=== PATIENT | female | born 1965 | race Caucasian/White ===

== ENCOUNTER → 2016-09-28 | Outpatient (REF) | payer MEDICARE, MEDICAID ==
[~2016-09-28] MED LIST: CENTTAB47 PO; ETOD30CA PO; IRON65TA PO; NATU400T PO; PANT40TA2 PO; RANI15TA PO; SIMV20TA2 PO; STOO100C PO; TIZA4CAP3 PO; VITA500C24 PO
== END ==
LOC: M SFHCLERA 17:45
PROVIDERS: ATTEND Physician Assistant Medical
DX: J02.9 Acute pharyngitis, unspecified (principal)

== ENCOUNTER → 2017-02-03 | Outpatient (REF) | payer MEDICARE, MEDICAID ==
[2017-02-03 11:34] LABS: BASO % 0.8 % (0.0-1.0); EOS # 0.2 K/mm3 (0.0-0.50); EOS % 5.2 % (0.0-3.0); LARGE UNSTAINED CELL # 0.1 K/mm3 (0.0-0.4); LARGE UNSTAINED CELL % 1.4 % (0.0-4.0); LYMPH # 1.1 K/mm3 (1.5-4.5); LYMPH % 25.9 % (24.0-44.0); MEAN CORPUSCULAR HEMOGLOBIN 31.9 pg (27.0-33.0); MEAN CORPUSCULAR HGB CONC 35.9 g/dl (32.0-36.5); MEAN CORPUSCULAR VOLUME 88.8 fl (80.0-96.0); MONO # 0.2 K/mm3 (0.0-0.8); MONO % 5.6 % (0.0-5.0); NEUTROPHILS # 2.4 K/mm3 (1.8-7.7); PLATELET COUNT, AUTOMATED 206 k/mm3 (150-450); RED CELL DISTRIBUTION WIDTH 12.7 % (11.5-14.5); WHITE BLOOD COUNT 3.9 K/mm3 (4.0-10.0)
[2017-02-03 12:13] LABS: ALBUMIN 3.3 GM/DL (3.2-5.2); ALKALINE PHOSPHATASE 61 U/L (45-117); ALT/SGPT 27 U/L (12-78); ANION GAP 7 MEQ/L (8-16); AST/SGOT 20 U/L (15-37); BILIRUBIN,TOTAL 0.4 MG/DL (0.2-1.0); BLOOD UREA NITROGEN 19 MG/DL (7-18); CALCIUM LEVEL 8.7 MG/DL (8.5-10.1); CARBON DIOXIDE LEVEL 31 MEQ/L (21-32); CHLORIDE LEVEL 107 MEQ/L (98-107); CHOLESTEROL LEVEL 190 MG/DL (<200); CREATININE FOR GFR 0.83 MG/DL (0.55-1.02); GLOMERULAR FILTRATION RATE > 60.0 (>58); GLUCOSE, FASTING 90 MG/DL (70-105); POTASSIUM SERUM 4.7 MEQ/L (3.5-5.1); SODIUM LEVEL 145 MEQ/L (136-145); TOTAL PROTEIN 6.6 GM/DL (6.4-8.2); TRIGLYCERIDES LEVEL 122 MG/DL (<150)
== END ==
LOC: M SFHCLERA 08:00
PROVIDERS: ATTEND Family Medicine
DX: D50.9 Iron deficiency anemia, unspecified (principal); E78.2 Mixed hyperlipidemia; E03.9 Hypothyroidism, unspecified

== ENCOUNTER → 2017-04-08 | Outpatient (CLI) | payer MEDICARE, MEDICAID ==
--- NOTE | 2017-04-08 18:35 | REP ---
REASON: Left hip pain. COMPARISON: None. There is asymmetric hip joint space narrowing with mild buttressing. There is no acute fracture or dislocation. IMPRESSION: Chronic changes as described above. LUMBOSACRAL SPINE SERIES: COMPARISON: 03/21/2014 REASON FOR EXAM: Low back pain with increasing severity and left lower extremity radicular symptoms. Vertebral body height and alignment is unchanged and within normal limits. There is posterior disc space narrowing at every level status quo. Degenerative facet joint changes are seen at L4-5 and L5-S1 bilaterally status quo. There is minimal anterior lipping. There was no spondylolysis or spondylolisthesis The pedicles were again seen to be intact bilaterally. IMPRESSION: Essentially stable appearing chronic changes as described above. Signed by Keon Leos DO 04/09/2017 02:21 P
== END ==
LOC: M LRY 15:47
PROVIDERS: ATTEND Family Medicine
DX: M25.552 Pain in left hip (principal); M54.42 Lumbago with sciatica, left side; M51.37 Other intervertebral disc degeneration, lumbosacral region; M12.88 Other specific arthropathies, not elsewhere classified, other specified site
CPT/HCPCS: 72110; 73502; G0463

== ENCOUNTER → 2017-06-02 | Outpatient (REF) | payer MEDICARE, MEDICAID ==
[2017-06-02 11:36] LABS: BASO % 0.6 % (0.0-1.0); EOS # 0.2 K/mm3 (0.0-0.50); EOS % 5.2 % (0.0-3.0); LARGE UNSTAINED CELL # 0.1 K/mm3 (0.0-0.4); LARGE UNSTAINED CELL % 1.5 % (0.0-4.0); LYMPH % 26.3 % (24.0-44.0); MEAN CORPUSCULAR VOLUME 87.5 fl (80.0-96.0); MONO # 0.2 K/mm3 (0.0-0.8); MONO % 4.5 % (0.0-5.0); NEUTROPHILS # 2.3 K/mm3 (1.8-7.7); NEUTROPHILS % 61.8 % (36.0-66.0); PLATELET COUNT, AUTOMATED 215 k/mm3 (150-450); RED CELL DISTRIBUTION WIDTH 12.5 % (11.5-14.5); WHITE BLOOD COUNT 3.7 K/mm3 (4.0-10.0)
[2017-06-02 11:39] LABS: MEAN CORPUSCULAR HGB CONC 36.3 g/dl (32.0-36.5)
== END ==
LOC: M SFHCLERA 08:00
PROVIDERS: ATTEND Family Medicine
DX: D50.9 Iron deficiency anemia, unspecified (principal)

== ENCOUNTER → 2017-06-12 | Outpatient (REF) | payer MEDICARE, MEDICAID | LOC: M SFHCLERA 15:15 | PROVIDERS: ATTEND Family Medicine | DX: E66.9 Obesity, unspecified (principal); K21.9 Gastro-esophageal reflux disease without esophagitis; G89.29 Other chronic pain; M25.552 Pain in left hip; M54.5 Low back pain; Z51.81 Encounter for therapeutic drug level monitoring; Z79.899 Other long term (current) drug therapy ==

== ENCOUNTER → 2017-12-15 | Outpatient (REF) | payer MEDICARE, MEDICAID ==
[2017-12-15 11:27] LABS: FERRITIN 138 NG/ML (8-252); IRON (FE) 97 UG/DL (50-170); PERCENT SATURATION 28.6 % (13.2-45.0); TOTAL IRON BINDING CAPACITY 339 UG/DL (250-450)
== END ==
LOC: M SFHCLERA 08:03
DX: D50.9 Iron deficiency anemia, unspecified (principal); E03.9 Hypothyroidism, unspecified; Z79.899 Other long term (current) drug therapy
CPT/HCPCS: 83550

== ENCOUNTER → 2018-05-07 | Outpatient (REF) | payer MEDICARE, MEDICAID | LOC: M SFHCLERA 13:37 | DX: D64.9 Anemia, unspecified (principal); M62.830 Muscle spasm of back ==

== ENCOUNTER → 2018-07-22 | Outpatient (REF) | payer OTHER ==
[2018-07-22 11:47] LABS: AMORPHOUS SEDIMENT SMALL (NEGATIVE); APPEARANCE, URINE HAZY (CLEAR); BACTERIA, URINE AUTO 1+ (NEGATIVE); BILIRUBIN, URINE AUTO NEGATIVE (NEGATIVE); BLOOD, URINE BLOOD 1+ (NEGATIVE); COLOR, URINE YELLOW (YELLOW); GLUCOSE, URINE (UA) AUTO NEGATIVE (NEGATIVE); KETONE, URINE AUTO NEGATIVE (NEGATIVE); LEUKOCYTE ESTERASE, URINE AUTO NEGATIVE (NEGATIVE); MUCUS, URINE SMALL (NEGATIVE); NITRITE, URINE AUTO NEGATIVE (NEGATIVE); PROTEIN, URINE AUTO NEGATIVE (NEGATIVE); RBC, URINE AUTO 2 /HPF (0-3); SPECIFIC GRAVITY URINE AUTO 1.011 (1.002-1.035); SQUAMOUS EPITHELIAL CELL UR AU 2 /HPF (0-6); UROBILINOGEN, URINE AUTO 0.2 mg/dL (0.0-2.0); WBC, URINE AUTO 2 /HPF (0-3)
== END ==
LOC: M SFHCLERA 07:54
DX: N39.45 Continuous leakage (principal)

== ENCOUNTER → 2018-07-22 | Outpatient (CLI) | payer OTHER | LOC: M LRY 08:20 | DX: M71.311 Other bursal cyst, right shoulder (principal); N39.45 Continuous leakage; M25.511 Pain in right shoulder | CPT/HCPCS: 73030 ==

== ENCOUNTER → 2018-08-21 | Outpatient (REF) | payer OTHER ==
[2018-08-21 16:49] LABS: APPEARANCE, URINE CLEAR (CLEAR); BACTERIA, URINE AUTO NEGATIVE (NEGATIVE); BILIRUBIN, URINE AUTO NEGATIVE (NEGATIVE); BLOOD, URINE BLOOD NEGATIVE (NEGATIVE); COLOR, URINE STRAW (YELLOW); GLUCOSE, URINE (UA) AUTO NEGATIVE (NEGATIVE); KETONE, URINE AUTO NEGATIVE (NEGATIVE); LEUKOCYTE ESTERASE, URINE AUTO NEGATIVE (NEGATIVE); MUCUS, URINE SMALL (NEGATIVE); NITRITE, URINE AUTO NEGATIVE (NEGATIVE); PROTEIN, URINE AUTO NEGATIVE (NEGATIVE); RBC, URINE AUTO 2 /HPF (0-3); SPECIFIC GRAVITY URINE AUTO 1.003 (1.002-1.035); SQUAMOUS EPITHELIAL CELL UR AU 1 /HPF (0-6); WBC, URINE AUTO 0 /HPF (0-3)
== END ==
LOC: M LAB REF 16:12
DX: N32.81 Overactive bladder (principal)
CPT/HCPCS: 81001

== ENCOUNTER → 2018-09-09 | Outpatient (REF) | payer OTHER ==
[~2018-09-09] MED LIST changes: -PANT40TA2 PO; +PANT40TA3 PO; +TIZA4CAP PO; -TIZA4CAP3 PO
== END ==
LOC: M SFHCLERA 13:39
PROVIDERS: ATTEND Nurse Practitioner Family
DX: J02.9 Acute pharyngitis, unspecified (principal)

== ENCOUNTER → 2018-09-25 | Outpatient (REF) | payer OTHER ==
[2018-09-25 12:19] LABS: BASO % 0.7 % (0.0-1.0); EOS # 0.2 10^3/uL (0.0-0.50); EOS % 3.6 % (0.0-3.0); HEMOGLOBIN 11.6 g/dl (12.0-15.5); LYMPH # 1.3 10^3/uL (1.5-4.5); LYMPH % 30.5 % (24.0-44.0); MEAN CORPUSCULAR HEMOGLOBIN 31.4 pg (27.0-33.0); MEAN CORPUSCULAR HGB CONC 35.2 g/dl (32.0-36.5); MEAN CORPUSCULAR VOLUME 89.4 fl (80.0-96.0); MONO # 0.2 10^3/uL (0.0-0.8); MONO % 5.5 % (0.0-5.0); NEUTROPHILS # 2.6 10^3/uL (1.8-7.7); NEUTROPHILS % 59.2 % (36.0-66.0); PLATELET COUNT, AUTOMATED 206 10^3/uL (150-450); RED BLOOD COUNT 3.69 10^6/uL (4.00-5.40); WHITE BLOOD COUNT 4.4 10^3/uL (4.0-10.0)
[2018-09-25 12:46] LABS: ERYTHROCYTE SEDIMENTATION RATE 17 mm/hr (0-30)
[2018-09-25 12:55] LABS: C REACTIVE PROTEIN QUANTITATIV 0.54 MG/DL (0.00-0.30); RHEUMATOID FACTOR QUANT < 10.0 IU/ML (<15.0)
== END ==
LOC: M LABDRAW1 11:53
PROVIDERS: ATTEND Physician Assistant
DX: M19.011 Primary osteoarthritis, right shoulder (principal)

== ENCOUNTER 2018-10-29 10:47 | Day surgery (SDC) | payer OTHER ==
[~2018-10-29] VITALS: Ht 167.6 cm; Wt 88.5 kg
[~2018-10-29 10:47] MED LIST changes: +LEVO75TA4 PO; +LR 1,000 ML IV SCH; +MECL-86 PO; +METH1TAB40 PO; +PREM0.9T PO
--- NOTE | 2018-10-29 11:40 | ECGEPIP ---
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
[2018-10-29] MEDS ORDERED: VASOPRESSIN INJ 20 UNITS/ML VIAL As Ordered ONE (12:31)
[2018-10-29] MEDS ORDERED: KETOROLAC 60 MG/2 ML VIAL (J1885) As Ordered ONE (13:08)
[2018-10-29] MEDS ORDERED: LIDOCAINE 2% INJ 100 MG/5 ML SDV (FOR ANES.) As Ordered ONE (13:08)
[2018-10-29] MEDS ORDERED: ROCURONIUM BROMIDE 50 MG/5 ML VIAL As Ordered ONE (13:08)
[2018-10-29] MEDS ORDERED: PROPOFOL 200 MG/20 ML VIAL As Ordered ONE (13:08)
[2018-10-29] MEDS ORDERED: fentaNYL 100 MCG/2 ML INJECTION (J3010) As Ordered ONE (13:08)
[2018-10-29] MEDS ORDERED: dexameTHASONE 4 MG/ML 1ML VIAL (J1100) As Ordered ONE (13:08)
[2018-10-29] MEDS ORDERED: MIDAZOLAM INJ 2 MG/2 ML VIAL (J2250) As Ordered ONE (13:08)
[2018-10-29] MEDS ORDERED: METOCLOPRAMIDE INJ 10MG/2ML VIAL (J2765) As Ordered ONE (13:10)
[2018-10-29] MEDS ORDERED: SUGAMMADEX SODIUM 500 MG/5 ML VIAL (BRIDION) As Ordered ONE (13:38)
[2018-10-29] MEDS ORDERED: ONDANSETRON 4MG/2ML VIAL (J2405) As Ordered ONE (13:38)
[2018-10-29] MEDS ORDERED: ONDANSETRON 4MG/2ML VIAL (J2405) IV PRN (14:15)
[2018-10-29] MEDS ORDERED: fentaNYL 100 MCG/2 ML INJECTION (J3010) IV PRN (14:15)
[2018-10-29] MEDS ORDERED: LR 1,000 ML IV SCH ×2 (14:15)
[2018-10-29] MEDS ORDERED: NORCO, ANEXSIA 5/325MG TABLET (HYDROcodone/ACETAMINOPHEN) PO PRN (14:15)
[2018-10-29] MEDS ORDERED: IBUPROFEN 600 MG TAB PO PRN (14:15)
[2018-10-29] MEDS ORDERED: PERCOCET 5MG/325MG TAB PO PRN (14:15)
[2018-10-29] MEDS ORDERED: MORPHINE 10 MG/ML 1ML VIAL (J2270) IV PRN (14:15)
[2018-10-29 15:10] VITALS: BP 154/75
--- NOTE | 2018-10-31 19:09 | RO ---
DATE OF PROCEDURE: 10/29/2018 PREOPERATIVE DIAGNOSIS: Stress urinary incontinence with urethral hypermobility. POSTOPERATIVE DIAGNOSIS: Stress urinary incontinence with urethral hypermobility. PROCEDURE: Mid urethral sling placement with Solyx and cystourethroscopy. SURGEON: Dr. Honey Cui [employer]LL [employer] SUPERVISOR: No nurse's assistant was needed. ANESTHESIA: General endotracheal anesthesia. DESCRIPTION OF PROCEDURE: Alice was brought to the operating room where sufficient general endotracheal anesthesia was induced, and she was prepped, draped and positioned in the usual sterile fashion with the bladder emptied and the anterior aspect of the vagina visualized. Approximately 1 cm to 1-1/2 cm cephalad from the urethral meatus, the vagina was injected with diluted vasopressin and then approximately 1-1/2 cm incision was made. Strully scissors were used to dissect out laterally for the tracts, for the placement of the Solyx. The anatomic reevaluation was done to confirm appropriate trajectory and then the Solyx midurethral sling was placed without complication, placing first the right side, then the left with care taken not to twist or disorient the mesh. We then carefully scoped the patient and visualized both the bladder and the urethra, and we were able to specifically check extra carefully, the lower bladder close to the urethra at sort of 5 o'clock and 7 to 8, and there was no evidence of any injury to the bladder. And as we backed out of the urethra, we were able to see no evidence of injury to the urethra. We also were able to see normal jets of urine from the ureters and able to see a normal trigone and absence of bladder lesion. The pictures are quite dark. We had some difficulty getting the light bright enough, but when you move really close to the tissues, you are able to see that there are no lesions. Just trying to back off to get a decent picture with some anatomy to orient it, the picture went dim rather quickly, but we were able to get a decent visualization nevertheless. And there was no evidence of injury to the bladder or intravesicular abnormality and so the procedure was then ended with the bladder emptied again and then the vaginal wound closed with #2-0 Vicryl. At the completion of the procedure, estimated blood loss was maybe 1 mL. Fluid replacement was crystalloid. Complications: None. Condition and Disposition: Alice tolerated the procedure well and was recovering in the recovery room in good condition.
== END 2018-10-29 15:16 | disposition home or self-care (01) ==
LOC: M SDC 10:47
PROVIDERS: ATTEND Obstetrics & Gynecology
DX: N39.3 Stress incontinence (female) (male) (principal); N36.41 Hypermobility of urethra; E78.5 Hyperlipidemia, unspecified; E03.9 Hypothyroidism, unspecified; Z87.891 Personal history of nicotine dependence; Z79.899 Other long term (current) drug therapy
CPT/HCPCS: 57288; 93005; C1771; J0690; J1100; J1885; J2250; J2405; J2765; J3010

== ENCOUNTER → 2019-05-21 | Outpatient (REF) | payer OTHER ==
[~2019-05-21] MED LIST changes: -LR 1,000 ML IV SCH; +MM S100C PO; -STOO100C PO
== END ==
LOC: M SFHCLERA 09:01
PROVIDERS: ATTEND Family Medicine
DX: E03.9 Hypothyroidism, unspecified (principal)

== ENCOUNTER → 2019-05-21 | Outpatient (CLI) | payer OTHER ==
--- NOTE | 2019-05-21 09:55 | REP ---
LEFT HIP, TWO VIEWS: Two views of the left hip are performed. There is no acute fracture or dislocation. There is severe joint space narrowing and subchondral sclerosis. There is moderate spurring of the acetabulum and femoral head. IMPRESSION: Severe degenerative changes. Electronically Signed by Babatunde Sawyer MD 05/21/2019 10:58 A
== END ==
LOC: M LRY 09:12
PROVIDERS: ATTEND Family Medicine
DX: E03.9 Hypothyroidism, unspecified (principal); M16.12 Unilateral primary osteoarthritis, left hip

== ENCOUNTER → 2019-07-19 | Outpatient (REF) | payer OTHER, MEDICARE, MEDICAID ==
[2019-07-19 20:14] LABS: ALBUMIN 4.4 GM/DL (3.2-5.2); PERCENT SATURATION 23.8 % (13.2-45.0)
== END ==
LOC: M LAB REF 19:26
PROVIDERS: ATTEND Orthopaedic Surgery Adult Reconstructive Orthopaedic Surgery
DX: M25.552 Pain in left hip (principal); M16.12 Unilateral primary osteoarthritis, left hip; D63.8 Anemia in other chronic diseases classified elsewhere; Z01.818 Encounter for other preprocedural examination

== ENCOUNTER → 2020-03-15 | Outpatient (REF) | payer OTHER, MEDICARE, MEDICAID ==
[~2020-03-15] MED LIST changes: -SIMV20TA2 PO; +SIMV20TA22 PO
[2020-03-15 12:27] LABS: BASO # 0.1 10^3/uL (0.0-0.2); BASO % 0.9 % (0.0-1.0); EOS # 0.2 10^3/uL (0.0-0.5); EOS % 3.8 % (0.0-3.0); HEMATOCRIT 36.4 % (36.0-47.0); HEMOGLOBIN 12.5 g/dl (12.0-15.5); LYMPH # 1.6 10^3/uL (1.5-5.0); MEAN CORPUSCULAR HEMOGLOBIN 29.8 pg (27.0-33.0); MEAN CORPUSCULAR HGB CONC 34.3 g/dl (32.0-36.5); MEAN CORPUSCULAR VOLUME 86.9 fl (80.0-96.0); MONO # 0.3 10^3/uL (0.0-0.8); MONO % 5.2 % (0.0-5.0); NEUTROPHILS # 3.5 10^3/uL (1.5-8.5); NEUTROPHILS % 61.1 % (36.0-66.0); PLATELET COUNT, AUTOMATED 216 10^3/uL (150-450); RED BLOOD COUNT 4.19 10^6/uL (4.00-5.40); WHITE BLOOD COUNT 5.8 10^3/uL (4.0-10.0)
[2020-03-15 12:43] LABS: CHOLESTEROL RISK RATIO 2.765 (<5); THYROID STIMULATING HORMONE 1.5 uIU/ML (0.358-3.740)
== END ==
LOC: M SFHCLERA 09:20
PROVIDERS: ATTEND Family Medicine
DX: E78.2 Mixed hyperlipidemia (principal); E03.9 Hypothyroidism, unspecified; D50.9 Iron deficiency anemia, unspecified

== ENCOUNTER → 2020-03-15 | Outpatient (CLI) | payer OTHER, MEDICARE, MEDICAID ==
[2020-03-15 12:33] LABS: ALBUMIN 4.1 GM/DL (3.2-5.2); PERCENT SATURATION 25.3 % (13.2-45.0)
== END ==
LOC: M LRY 09:28
PROVIDERS: ATTEND Orthopaedic Surgery Adult Reconstructive Orthopaedic Surgery
DX: Z01.818 Encounter for other preprocedural examination (principal); M16.11 Unilateral primary osteoarthritis, right hip; M25.551 Pain in right hip; D63.8 Anemia in other chronic diseases classified elsewhere

== ENCOUNTER → 2022-01-01 | Outpatient (CLI) | payer OTHER, MEDICAID ==
[~2022-01-01] MED LIST changes: +METH-1164 PO; -METH1TAB40 PO; +PANT40TA29 PO; -PANT40TA3 PO
== END ==
LOC: M WHC 07:26
PROVIDERS: ATTEND Obstetrics & Gynecology
DX: Z12.31 Encounter for screening mammogram for malignant neoplasm of breast (principal)